=== PATIENT | female | born 2000 | race Caucasian/White ===

== ENCOUNTER 2022-09-01 07:33 | Emergency (ER) | payer MEDICAID ==
[2022-09-01] MEDS ORDERED: Ketorolac 30 MG/ML SDV IM ONE (09:58)
== END 2022-09-01 10:46 | disposition home or self-care (01) ==
LOC: JP.ED 07:33
DX: S29.012A Strain of muscle and tendon of back wall of thorax, initial encounter (principal); X50.0XXA Overexertion from strenuous movement or load, initial encounter; Y99.0 Civilian activity done for income or pay
CPT/HCPCS: 96372; 99282; 99283; J1885

== ENCOUNTER 2023-10-15 00:07 | Day surgery (SDC) | payer MEDICAID, OTHER ==
[2023-10-15 00:52] LABS: BASOPHILS ABSOLUTE AUTO 0.08 K/uL (0.00-0.10); EOSINOPHILS ABSOLUTE AUTO 0.17 K/uL (0.00-0.40); HEMATOCRIT 36.9 % (34.3-46.0); HEMOGLOBIN 11.8 g/dL (11.2-15.5); IMMATURE GRAN ABSOLUTE AUTO 0.03 K/uL (0.00-0.23); IMMATURE GRAN PERCENT AUTO 0.4 % (0.0-0.7); LYMPHOCYTES ABSOLUTE AUTO 2.19 K/uL (0.8-3.3); LYMPHOCYTES PERCENT AUTO 26.4 % (11.4-47.7); MEAN CORPUSCULAR HEMOGLOBIN 27.6 pg (31.6-35.5); MEAN CORPUSCULAR VOLUME 86.4 fL (81.4-99.0); MONOCYTES ABSOLUTE AUTO 0.58 K/uL (0.20-0.90); NEUTROPHILS ABSOLUTE AUTO 5.26 K/uL (1.0-7.6); NEUTROPHILS PERCENT AUTO 63.2 % (40.0-78.1); PLATELET COUNT,PLT 212 K/uL (130-375); RED BLOOD CELL COUNT 4.27 M/uL (3.77-5.24); WHITE BLOOD CELL COUNT,WBC 8.3 K/uL (3.2-11.0)
[2023-10-15] MEDS: Ondansetron 4 MG/2 ML SDV IVPUSH ONE ×2 (00:56→01:30)
[2023-10-15] MEDS: Sodium Chloride 0.9% 1,000 ML IV SCH ×2 (00:56→02:23)
[2023-10-15 01:09] LABS: A/G RATIO 0.8 (1.2-2.2); ALANINE AMINOTRANSFERASE,ALT 462 U/L (12-78); ALBUMIN 3.8 g/dL (3.4-5.0); ALKALINE PHOSPHATASE 97 U/L (46-116); ANION GAP 10.5 mmol/L (5.0-14.0); ASPARTATE AMNIOTRANSFERASE,AST 394 U/L (15-37); BILIRUBIN TOTAL 0.3 mg/dL (0.2-1.0); BLOOD UREA NITROGEN,BUN 12 mg/dL (7-18); CARBON DIOXIDE,CO2 28 mmol/L (21-32); CHLORIDE,CL 102 mmol/L (100-108); CREATININE 1.1 mg/dL (0.6-1.0); EST CRCL DRUG DOSING (CG) 75.73 mL/min; ESTIMATED GFR 73 mL/min (>60); GLUCOSE RANDOM 122 mg/dL (74-106); POTASSIUM,K 4.2 mmol/L (3.6-5.2); PROTEIN TOTAL,TP 8.4 g/dL (6.4-8.2); SODIUM,NA 140 mmol/L (140-148)
[2023-10-15 01:20] LABS: APPEARANCE,URINE CLEAR (CLEAR); BILIRUBIN,URINE NEGATIVE (NEGATIVE); COLOR,URINE YELLOW (YELLOW); GLUCOSE,URINE NEGATIVE (NEGATIVE); KETONES,URINE NEGATIVE (NEGATIVE); LEUKOCYTE ESTERASE,URINE NEGATIVE (NEGATIVE); NITRITE,URINE NEGATIVE (NEGATIVE); OCCULT BLOOD,URINE NEGATIVE (NEGATIVE); PROTEIN,URINE NEGATIVE (NEGATIVE)
[2023-10-15] MEDS: Iopamidol 612 MG/ML 100 ML Bottle IV STA (01:44)
[2023-10-15] MEDS: Sodium Chloride 0.9% 80 ML IV STA (01:44)
[2023-10-15 01:46] LABS: AMORPHOUS SEDIMENT,URINE FEW; BACTERIA,URINE FEW; EPITHELIAL CELLS,URINE FEW; MUCUS,URINE NOT SEEN; RBC,URINE 0-5 (0-5); WBC,URINE 0-5 (0-5)
[2023-10-15] MEDS: Pantoprazole 40 MG Vial IVPUSH ONE (02:18)
[2023-10-15] MEDS: HYDROmorphone 0.5 MG/0.5 ML Syringe IVPUSH ONE (02:18)
[2023-10-15 03:15] LABS: CORONAVIRUS COVID-19 NAA NEGATIVE (NEGATIVE); INFLUENZA A NAA NEGATIVE (NEGATIVE); INFLUENZA B NAA NEGATIVE (NEGATIVE); RESPIRATORY SYNCYTIAL VIR NAA NEGATIVE (NEGATIVE)
[2023-10-15] MEDS: HYDROmorphone 0.5 MG/0.5 ML Syringe IVPUSH PRN (05:09)
[2023-10-15] MEDS: Lactated Ringers 1,000 ML IV SCH (05:09)
[2023-10-15] MEDS: Heparin Sodium 5,000 Units/ML Vial SUBCUT ONE (05:09)
[2023-10-15] MEDS: cefOXitin 2 GM in Sodium Chloride 0.9% 50 ML IV ONE (05:09)
[2023-10-15] MEDS ORDERED: fentaNYL 250 MCG/5 ML SDV ONE ×2 (05:58→06:29)
[2023-10-15] MEDS ORDERED: Propofol 200 MG/20 ML SDV ONE (05:59)
[2023-10-15] MEDS ORDERED: Succinylcholine 200 MG/10 ML MDV ONE (05:59)
[2023-10-15] MEDS ORDERED: Rocuronium 50 MG/5 ML Vial ONE (05:59)
[2023-10-15] MEDS ORDERED: Dexamethasone 4 MG/ML SDV ONE (05:59)
[2023-10-15] MEDS ORDERED: Neostigmine Methylsulfate 10 MG/10 ML MDV ONE (05:59)
[2023-10-15] MEDS ORDERED: Ondansetron 4 MG/2 ML SDV ONE (05:59)
[2023-10-15] MEDS ORDERED: Glycopyrrolate 0.2 MG/ML 5 ML MDV ONE (05:59)
[2023-10-15] MEDS: Bupivacaine 0.5%/EPINEPHrine 1:200,000 50 ML MDV ONE (06:42)
[2023-10-15] MEDS ORDERED: Labetalol 20 MG/4 ML Syringe ONE (06:50)
[2023-10-15] MEDS ORDERED: Morphine 2 MG/ML SYRINGE IVPUSH ONE (09:15)
[2023-10-15] MEDS: Acetaminophen/oxyCODONE 325-5 MG Tab PO PRN (11:16)
== END 2023-10-15 12:34 | disposition home or self-care (01) ==
LOC: JP.ED 00:07 → JP.SDS 06:30
PROVIDERS: ATTEND Surgery
DX: K80.12 Calculus of gallbladder with acute and chronic cholecystitis without obstruction (principal); R10.10 Upper abdominal pain, unspecified; Z79.899 Other long term (current) drug therapy
CPT/HCPCS: 0241U; 36415; 47562; 74177; 76705; 80053; 81001; 81025; 82150; 82272; 83690; 85025; 86140; 88304; A9270; C9113; J0330; J0694; J1100; J1170; J1644; J1920; J2405; J2704; J2710; J3010; J3490; J7030; J7120; Q9967